=== PATIENT | male | born 1985 ===

== ENCOUNTER 2022-05-04 06:50 | Day surgery (SDC) | payer OTHER ==
[~2022-05-04] VITALS: Ht 172.7 cm; Wt 83.5 kg
[~2022-05-04 06:50] MED LIST: FLONASE16 GM; ZYRTEC10 M3 PO
== END 2022-05-04 15:15 | disposition home or self-care (01) ==
LOC: CIR.AMB 06:50
PROVIDERS: ATTEND Orthopaedic Surgery Hand Surgery
DX: S63.498A Traumatic rupture of other ligament of other finger at metacarpophalangeal and interphalangeal joint, initial encounter (principal); Z20.822 Contact with and (suspected) exposure to COVID-19; K21.9 Gastro-esophageal reflux disease without esophagitis

== ENCOUNTER 2022-05-05 03:11 | Emergency (ER) | payer OTHER ==
[~2022-05-05] VITALS: Ht 172.7 cm; Wt 83.9 kg
== END 2022-05-05 08:25 | disposition home or self-care (01) ==
LOC: ER 03:11
DX: M79.642 Pain in left hand (principal)